=== PATIENT | male | born 1975 | race African-American/Black ===

== ENCOUNTER 2019-01-10 01:20 | Emergency (ER) | payer SELFPAY ==
[~2019-01-10] VITALS: Ht 180.3 cm; Wt 95.5 kg
[2019-01-10 01:33] VITALS: Ht 180.3 cm; Wt 95.5 kg
[2019-01-10 02:11] LABS: HEMATOCRIT 39.2 % (42.0-54.0); HEMOGLOBIN 13.9 g/dL (13.5-17.5); MCHC 35.5 g/dL (31.0-37.0); MCV 84.7 fL (80.0-100.0); MEAN PLATELET VOLUME 10.1 fL (7.4-10.4); NEUTROPHILS 61.4 % (40-80); PLATELET COUNT 185 10x3/uL (130-400); RBC 4.63 10x6/uL (4.20-6.10); RDW 12.9 % (11.5-14.5)
[2019-01-10 02:15] LABS: INR 1.01 (0.85-1.17); PROTIME 12.8 SECONDS (11.6-15.0)
[2019-01-10 02:16] LABS: APTT 24.8 SECONDS (22.8-39.4)
[2019-01-10 02:19] LABS: ALBUMIN 3.9 g/dL (3.4-5.0); ALKALINE PHOSPHATASE 66 U/L (46-116); ALT (SGPT) 24 U/L (10-68); BILIRUBIN - TOTAL 0.34 mg/dL (0.2-1.3); CALC OSMOLALITY 282 mosm/kg (275-300); CALCIUM 9.4 mg/dL (8.5-10.1); CARBON DIOXIDE 30.2 mmol/L (21.0-32.0); CHLORIDE - SERUM 104 mmol/L (98-107); CREATININE - SERUM 1.3 mg/dL (0.6-1.3); D-DIMER-QUANTITATIVE 1.9 ug/mLFEU (0.20-0.54); GLUCOSE 112 mg/dL (74-106); PROTEIN - SERUM 8.2 g/dL (6.4-8.2); SODIUM 142 mmol/L (136-145); UREA NITROGEN 11 mg/dL (7-18); eGFR NON AFRICAN AMERICAN 64 mL/min (90-120)
[2019-01-10 02:31] LABS: CKMB 2.6 U/L (0.0-3.6); CREATINE KINASE 563 UL (21-232); PRO BNP 25 pg/mL (0-125); TROPONIN-I < 0.017 ng/mL (0.000-0.060); URIC ACID 7.2 mg/dL (2.6-7.2)
[2019-01-10] MEDS ORDERED: SULFAMETHOXAZOL1 TA3 PO (03:49)
[2019-01-10] MEDS ORDERED: ALBUTEROL SULF8.5 GM INH (03:49)
[2019-01-10] MEDS ORDERED: MEDROL DOSE PACK4 MG PO (03:49)
[2019-01-10] MEDS ORDERED: KEFLEX500 MG PO (03:49)
[2019-01-10 04:16] VITALS: BP 136/87
== END 2019-01-10 04:11 | disposition home or self-care (01) ==
LOC: D.ER 01:20
PROVIDERS: Family Medicine
DX: R06.02 Shortness of breath (principal); L03.115 Cellulitis of right lower limb; K02.9 Dental caries, unspecified; K05.10 Chronic gingivitis, plaque induced; R06.2 Wheezing